=== PATIENT | male | born 2000 ===

== ENCOUNTER 2025-03-22 15:29 | Outpatient (REF) | payer OTHER, SELFPAY ==
[2025-03-22 15:11] LABS: HCT 44.2 % (40.0-50.0); HGB 14.6 g/dL (13.5-17.5); MCH 30.1 pg (27.0-33.0); MCHC 33.0 % (32.0-36.0); MCV 91 fL (80-95); MPV 10.3 fL (8.0-11.0); Platelet Count 212 10^3/uL (130-400); RBC 4.85 10^6/uL (4.36-5.78); RDW 13.7 % (11.8-14.1); RDW-SD 46.5 fL; WBC 5.50 10^3/uL (4.4-10.8)
[2025-03-22 15:45] LABS: ALT 19 U/L (16-63); AST 12 U/L (15-37); Albumin 4.2 g/dL (3.4-5.0); Alkaline Phosphatase 78 U/L (46-116); Anion Gap 7.8 mmol/L (3-11); BUN 25 mg/dL (7-18); Bilirubin, Total 0.4 mg/dL (0.2-1.0); CO2 29.2 mmol/L (21.0-32.0); Calcium 8.6 mg/dL (8.5-10.1); Calculated LDL 92 mg/dL (<100); Chloride 106 mmol/L (98-107); Cholesterol 152 mg/dL (<200); Estimated GFR 106.45 (mL/min/1.73m2); Glucose 90 mg/dL (74-106); HDL Cholesterol 47 mg/dL (>or=40); Potassium 4.0 mmol/L (3.5-5.1); Sodium 143 mmol/L (136-145); TSH (W/Ref FT4) 1.38 uIU/mL (0.36-3.74); Total Protein 6.7 g/dL (6.4-8.2); Triglyceride 66 mg/dL (<150); Vitamin D 25 Total 25 ng/mL (30-100)
== END 2025-03-22 15:30 | disposition home or self-care (01) ==
LOC: NCHCN 15:29
PROVIDERS: Visit Provider Physician Assistant
DX: Z13.220 Encounter for screening for lipoid disorders (principal); N50.89 Other specified disorders of the male genital organs; Z13.29 Encounter for screening for other suspected endocrine disorder; Z13.21 Encounter for screening for nutritional disorder
CPT/HCPCS: 80053; 80061; 82306; 85027; 84443